=== PATIENT | male | born 1985 | race Caucasian/White ===

== ENCOUNTER → 2018-02-16 | Outpatient (CLI) | payer BC ==
[~2018-02-16] MED LIST: PRD20T PO
--- NOTE | 2018-02-16 16:00 | Diagnostic Imaging Report ---
EXAMINATION: Left knee. INDICATION: Knee pain. FINDINGS: Three views were obtained. There are no prior studies available for comparison. There is no fracture, dislocation, or acute bony abnormality evident. There is a small well-marginated 0.4 x 1.0 cm calcific density in the soft tissues anterior to the tibial tuberosity. Most likely, this is a sequela of prior trauma. There is a fairly well-circumscribed sclerotic lesion along the posterior aspect of the proximal tibia. This measures 1.1 x 2.5 x 5.0 cm in maximum AP, transverse, and longitudinal dimensions. The precise etiology of this finding is not certain, but I do suspect it is a benign process. The knee joint is fairly well maintained. The soft tissues are unremarkable. IMPRESSION: 1. There is no evidence for an acute bony abnormality. 2. The sclerotic lesion along the posterior aspect of the proximal tibia is of uncertain etiology although most likely benign. 3. If clinical concern regarding an underlying abnormality persists and further imaging is desired, then MRI would be recommended. Dictated by: Dictated on workstation # [id number]
== END ==
LOC: RAD 13:26
PROVIDERS: ATTEND Nurse Practitioner Family
DX: M89.9 Disorder of bone, unspecified (principal)
CPT/HCPCS: 73562

== ENCOUNTER → 2018-02-22 | Outpatient (CLI) | payer BC ==
--- NOTE | 2018-02-22 13:23 | Diagnostic Imaging Report ---
PROCEDURE: MRI left joint lower extremity without contrast. TECHNIQUE: Multiplanar, multisequence non contrast-enhanced MRI of the left lower extremity was accomplished. INDICATION: Left knee pain for approximately ten years. A small amount of fluid in the knee joint. Anterior and posterior cruciate ligaments are intact. There is abnormal linear T2 signal within the posterior horn of the lateral meniscus. Small focal defect in the femoral surface of the lateral meniscal body is also noted. Articular cartilage appears to be maintained in the joint. Medial and lateral collateral ligamentous structures are intact. There is ossific structure near the patellar tibial insertion on the anterior tibial tubercle. This may represent previous osteochondrosis. There is questionable minimal associated marrow edema at the site indicating inflammation. Benign appearing fibrous lesion is seen along the posterior aspect of the tibia just beneath the cortex. This is incompletely evaluated on the knee exam. IMPRESSION: Findings are compatible with nondisplaced lateral meniscal tears. 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 No other acute internal derangement is identified. Dictated by: Dictated on workstation # [id number]
== END ==
LOC: RAD 11:19
DX: M25.562 Pain in left knee (principal)
CPT/HCPCS: 73721

== ENCOUNTER → 2019-06-27 | Outpatient (CLI) | payer BC ==
--- NOTE | 2019-06-27 11:05 | Diagnostic Imaging Report ---
EXAMINATION: Magnetic resonance imaging of the left shoulder without contrast. DATE: June 27, 2019. COMPARISON: None. HISTORY: 34-year-old male, left shoulder pain, limited range of motion, and tightness. TECHNIQUE: Magnetic Resonance Imaging sequences were performed of the shoulder without contrast. FINDINGS: ROTATOR CUFF, LIGAMENTS, TENDONS, AND MUSCLES: The supraspinatus, infraspinatus, teres minor, and subscapularis tendons and muscles are intact. There is normal rotator cuff muscle bulk and signal. LONG HEAD OF BICEPS: The biceps labral attachment and long head of the biceps tendon is intact. The long head of the biceps tendon is normally positioned within the bicipital groove. GLENOHUMERAL JOINT: The humeral head is well positioned relative to the glenoid. The labrum is grossly intact. There is no identified paralabral cyst. The articular cartilage is grossly intact. There is no joint effusion. ACROMIOCLAVICULAR JOINT: The acromioclavicular joint is normally aligned. The coracoclavicular and coracoacromial ligaments are intact. There are no degenerative changes of the acromioclavicular joint. BONE: There is no os acromiale. There is a low signal lesion in the glenoid, most consistent with a benign bone island, measuring up to maximally 7 mm in size. There is extensive edema in the distal clavicle with lack of edema in the adjacent acromion. There is a very subtle nondisplaced fracture line in the distal clavicle, perhaps best illustrated on axial PD fat saturation sequence image 3 and coronal PD sequence image 14. The additional bone marrow signal is unremarkable. BURSAE AND SOFT TISSUES: The bursae and soft tissue surrounding the shoulder are unremarkable. IMPRESSION: 1. Nondisplaced and most likely stress related fracture of the distal clavicle. 2. Intact rotator cuff. 3. Intact acromioclavicular joint. 4. Intact labrum and unremarkable glenohumeral joint assessment. Dictated by: Dictated on workstation # [id number]
== END ==
LOC: RAD 09:08
PROVIDERS: ATTEND Pediatrics
DX: M25.512 Pain in left shoulder (principal); S42.035A Nondisplaced fracture of lateral end of left clavicle, initial encounter for closed fracture
CPT/HCPCS: 73221